=== PATIENT | female | born 1990 | race Caucasian/White ===

== ENCOUNTER → 2019-10-16 14:00 | Outpatient (BNVA) | payer OTHER, SELFPAY | PROVIDERS: Family Provider Nurse Practitioner Family; PCP Nurse Practitioner Family; Visit Provider Nurse Practitioner | DX: N39.0 Urinary tract infection, site not specified (principal); R50.9 Fever, unspecified | CPT/HCPCS: 81003; 87804 ==

== ENCOUNTER 2020-12-02 09:30 | Outpatient (CLI) | payer OTHER, SELFPAY | END 2020-12-02 09:31 | disposition home or self-care (01) | LOC: LAB 11-04 15:36 | PROVIDERS: Family Provider Nurse Practitioner Family; PCP Nurse Practitioner Family; Visit Provider Nurse Practitioner Family | DX: R31.9 Hematuria, unspecified (principal); Z79.899 Other long term (current) drug therapy; R60.9 Edema, unspecified; Z13.6 Encounter for screening for cardiovascular disorders; E55.9 Vitamin D deficiency, unspecified | CPT/HCPCS: 80053; 80061; 81003; 82043; 82306; 83036; 83880; 84439; 84443; 84481; 85025 ==

== ENCOUNTER → 2020-12-28 09:07 | Outpatient (BNVA) | payer OTHER, SELFPAY | PROVIDERS: Family Provider Nurse Practitioner Family; PCP Nurse Practitioner Family; Visit Provider Nurse Practitioner Family | DX: R31.9 Hematuria, unspecified (principal) | CPT/HCPCS: 81003; 87086 ==

== ENCOUNTER → 2021-01-19 10:14 | Outpatient (BNVA) | payer OTHER, SELFPAY | PROVIDERS: Family Provider Nurse Practitioner Family; PCP Nurse Practitioner Family; Visit Provider Nurse Practitioner Family | DX: R31.9 Hematuria, unspecified (principal) | CPT/HCPCS: 81003; 87086; 88112 ==